=== PATIENT | male | born 1965 | race Caucasian/White ===

== ENCOUNTER → 2021-11-23 12:36 | Outpatient (BNVA) | payer MEDICARE, SELFPAY | PROVIDERS: Family Provider Nurse Practitioner; PCP Family Medicine; Visit Provider Registered Nurse Neonatal Intensive Care | DX: J02.9 Acute pharyngitis, unspecified (principal) | CPT/HCPCS: 87880 ==

== ENCOUNTER → 2022-07-14 07:53 | Outpatient (BNVA) | payer MEDICARE, SELFPAY | PROVIDERS: Family Provider Nurse Practitioner; PCP Family Medicine; Visit Provider Family Medicine | DX: E03.9 Hypothyroidism, unspecified (principal); R35.0 Frequency of micturition; Z13.220 Encounter for screening for lipoid disorders; Z51.81 Encounter for therapeutic drug level monitoring | CPT/HCPCS: 80053; 80061; 84153; 84439; 84443 ==

== ENCOUNTER 2022-08-16 12:25 | Outpatient (CLI) | payer OTHER, SELFPAY ==
--- NOTE | 2022-08-16 12:51 | XR_ITS ---
WS: [id number] Lumbar spine, 3 views, 08/16/2022 Clinical Data: Lumbar radiculopathy Comparison: Lumbar spine, 10/30/2018. Findings: No compression fractures or subluxation is seen. Degenerative disc narrowing of all levels from L1-L2 through L5-S1 is seen. There are anterior osteophytes. There is facet joint arthritis at all levels. . The transverse processes and SI joints are normal. There is a minimal levoscoliosis. XR/XR lumbar spine 2-3V* [id number] Impression: 1. Small levoscoliosis. 2. Multilevel disc degeneration with osteophyte formation. 3. Multilevel facet joint arthritis.
== END 2022-08-16 12:26 | disposition home or self-care (01) ==
PROVIDERS: PCP Family Medicine; Visit Provider Family Medicine
DX: M54.16 Radiculopathy, lumbar region (principal)
CPT/HCPCS: 72100

== ENCOUNTER 2022-11-08 06:42 | Outpatient (CLI) | payer OTHER, SELFPAY ==
--- NOTE | 2022-11-08 07:00 | US_ITS ---
WS: [id number] URINARY BLADDER ULTRASOUND HISTORY: Nodular mass seen on MRI COMPARISON: Lumbar spine MRI 10/04/2022. Urinary bladder is only mildly well distended. No intraluminal filling defect. No free fluid adjacent to the urinary bladder. Bladder wall is diffusely thickened. No discrete asymmetry. Bladder Wall Thickness: 0.9 cm. Bladder Prevoid: 5.3 cm x 4.1 cm x 6.0 cm. Prevoid volume: 69 ml. Bladder Postvoid: 3.5 cm x 2.8 cm x 3.2 cm. Postvoid volume: 16 ml. US/US bladder [id number] IMPRESSION: 1. No intraluminal bladder mass identified by ultrasound. 2. There is diffuse marked urinary bladder wall thickening. Consider outlet ob struction. No focal mass. 3. Minimal post void residual.
== END 2022-11-08 06:43 | disposition home or self-care (01) ==
PROVIDERS: PCP Family Medicine; Visit Provider Family Medicine
DX: N32.89 Other specified disorders of bladder (principal)
CPT/HCPCS: 76857

== ENCOUNTER → 2023-08-17 07:53 | Outpatient (BNVA) | payer OTHER, SELFPAY | PROVIDERS: PCP Family Medicine; Visit Provider Family Medicine | DX: Z51.81 Encounter for therapeutic drug level monitoring (principal); Z13.220 Encounter for screening for lipoid disorders; N40.1 Benign prostatic hyperplasia with lower urinary tract symptoms; R35.1 Nocturia; E55.9 Vitamin D deficiency, unspecified | CPT/HCPCS: 80053; 80061; 82306; 84153; 85025 ==

== ENCOUNTER → 2024-03-04 08:12 | Outpatient (BNVA) | payer OTHER, SELFPAY | PROVIDERS: PCP Family Medicine; Visit Provider Family Medicine | DX: R97.20 Elevated prostate specific antigen [PSA] (principal); I10 Essential (primary) hypertension; R73.03 Prediabetes; J32.9 Chronic sinusitis, unspecified; M54.50 Low back pain, unspecified; Z00.00 Encounter for general adult medical examination without abnormal findings; N18.9 Chronic kidney disease, unspecified; R79.89 Other specified abnormal findings of blood chemistry | CPT/HCPCS: 80053; 80061; 82306; 83036; 84153; 85025 ==

== ENCOUNTER → 2024-07-11 18:25 | Outpatient (BNVA) | payer MEDICARE, SELFPAY | PROVIDERS: PCP Family Medicine; Visit Provider Emergency Medicine | DX: J02.9 Acute pharyngitis, unspecified (principal) | CPT/HCPCS: 87071; 87880 ==

== ENCOUNTER → 2024-07-14 12:09 | Outpatient (BNVA) | payer MEDICARE, SELFPAY | PROVIDERS: PCP Family Medicine; Visit Provider Family Medicine | DX: R73.03 Prediabetes (principal); Z51.81 Encounter for therapeutic drug level monitoring; J02.9 Acute pharyngitis, unspecified | CPT/HCPCS: 80053; 83036; 85025; 86141 ==

== ENCOUNTER → 2024-12-05 08:21 | Outpatient (BNVA) | payer MEDICARE, SELFPAY | PROVIDERS: PCP Family Medicine; Visit Provider Family Medicine | DX: Z00.00 Encounter for general adult medical examination without abnormal findings (principal); Z13.6 Encounter for screening for cardiovascular disorders; E55.9 Vitamin D deficiency, unspecified; R73.03 Prediabetes; Z51.81 Encounter for therapeutic drug level monitoring | CPT/HCPCS: 80053; 80061; 82306; 83036; 85025 ==

== ENCOUNTER → 2025-01-16 11:41 | Outpatient (BNVA) | payer MEDICARE, SELFPAY | PROVIDERS: PCP Family Medicine; Visit Provider Nurse Practitioner Family | DX: L57.8 Other skin changes due to chronic exposure to nonionizing radiation (principal); D22.5 Melanocytic nevi of trunk; L81.4 Other melanin hyperpigmentation; L57.0 Actinic keratosis | CPT/HCPCS: 17000; 99203 ==

== ENCOUNTER → 2025-03-02 07:59 | Outpatient (BNVA) | payer MEDICARE, SELFPAY | PROVIDERS: PCP Family Medicine; Visit Provider Family Medicine | DX: E55.9 Vitamin D deficiency, unspecified (principal); Z79.899 Other long term (current) drug therapy; R53.83 Other fatigue | CPT/HCPCS: 80053; 82306; 84403 ==